=== PATIENT | female | born 1980 | race African-American/Black ===

== ENCOUNTER 2025-03-19 16:57 | Emergency (ER) | payer MEDICAID ==
[~2025-03-19] VITALS: Ht 170.2 cm; Wt 69.0 kg
[2025-03-19 17:16] VITALS: O2SAT 99
[2025-03-19 17:20] VITALS: BP 94/79; PULSE 70; RESP 16; TEMP 36.9; O2SAT 100
== END 2025-03-19 19:00 | disposition left against medical advice (07) ==
LOC: ER 16:57
DX: R07.89 Other chest pain (principal); I10 Essential (primary) hypertension
CPT/HCPCS: 93005; 99281

== ENCOUNTER 2025-04-21 08:15 | Emergency (ER) | payer MEDICAID ==
[~2025-04-21] VITALS: Ht 170.2 cm; Wt 64.0 kg
[2025-04-21 08:18] VITALS: PULSE 64; RESP 16; O2SAT 100
[2025-04-21 08:20] VITALS: BP 131/94; TEMP 36.7; O2SAT 100
[2025-04-21] MEDS ORDERED: KETOROLAC 15MG/ML VIAL IM ONE (09:30)
[2025-04-21] MEDS ORDERED: LIDOCAINE 5% PATCH TOP SCH (09:30)
[2025-04-21] MEDS ORDERED: ACETAMINOPHEN 325MG TABLET PO ONE (09:30)
== END 2025-04-21 09:33 | disposition left against medical advice (07) ==
LOC: ER 08:15
DX: M54.9 Dorsalgia, unspecified (principal); Z53.21 Procedure and treatment not carried out due to patient leaving prior to being seen by health care provider
CPT/HCPCS: 99281